=== PATIENT | male | born 1965 | race Caucasian/White ===

== ENCOUNTER 2017-11-28 01:18 | Inpatient (IN) | payer OTHER ==
[2017-11-28] MEDS ORDERED: DOCUSATE SODIUM 100 MG CAP PO (03:00)
[2017-11-28] MEDS ORDERED: BISACODYL (EC) 5 MG TAB PO (03:00)
[2017-11-28] MEDS ORDERED: NACL 0.9% 3 ML SYG IV (03:00)
[2017-11-28 03:32] LABS: ADD MAN DIFF? NO
[2017-11-28 03:35] LABS: WHITE BLOOD COUNT 13.5 10^3/ul (4.8-10.8)
[2017-11-28 03:35] LABS: BASOPHILS % 0.1 % (0.0-2.0); EOSINOPHILS # 0.4 10^3/ul (0.0-0.5); HEMATOCRIT 36.1 % (42.0-52.0); HEMOGLOBIN 11.6 g/dl (14.0-18.0); LYMPHOCYTES % 7.7 % (15.0-51.0); MEAN CORPUSCULAR HEMOGLOBIN 27.6 pg (29.0-33.0); MEAN CORPUSCULAR HGB CONC 32.1 g/dl (32.0-37.0); MEAN CORPUSCULAR VOLUME 85.7 fl (82.0-101.0); MONOCYTE # 0.9 10^3/ul (0.3-0.9); MONOCYTES % 6.5 % (0.0-11.0); NEUTROPHILS % 82.3 % (39.0-77.0); PLATELET COUNT 242 10^3/UL (140-415); RED BLOOD COUNT 4.21 10^6/ul (4.70-6.10); RED CELL DISTRIBUTION WIDTH 15.5 % (11.5-14.5)
[2017-11-28 04:00] LABS: HEMOGLOBIN A1C 5.2 % (0-5.9)
[2017-11-28 04:35] LABS: ALANINE AMINOTRANSFERASE 24 IU/L (13-69); ALBUMIN 3.4 g/dl (3.3-4.9); ALBUMIN/GLOBULIN RATIO 0.97; ALKALINE PHOSPHATASE 65 IU/L (42-121); ANION GAP 20 (8-16); ASPARTATE AMINO TRANSFERASE 35 IU/L (15-46); BILIRUBIN,INDIRECT 0.1 mg/dl (0-1.1); BILIRUBIN,TOTAL 0.1 mg/dl (0.2-1.3); CARBON DIOXIDE 10 mmol/L (21-31); CHLORIDE 115 mmol/L (97-110); CREATININE 10.03 mg/dl (0.61-1.24); GLUCOSE 87 mg/dl (70-220); POTASSIUM 5.7 mmol/L (3.5-5.1); SODIUM 139 mmol/L (135-144); TOTAL PROTEIN 6.9 g/dl (6.1-8.1)
[2017-11-28 04:39] LABS: CALCIUM 5.6 mg/dl (8.4-10.2)
[2017-11-28 04:44] LABS: BLOOD UREA NITROGEN 143 mg/dl (7-20); MAGNESIUM 1.4 mg/dl (1.7-2.5)
[2017-11-28 04:44] LABS: PHOSPHORUS 10.7 mg/dl (2.5-4.9)
[2017-11-28] MEDS ORDERED: CA CHLORIDE 10% 10 ML SYRINGE IV (05:00)
[2017-11-28] MEDS ORDERED: MAGNESIUM SULFATE 3 GM in DEXTROSE 5% 100 ML IVPB (05:30)
[2017-11-28] MEDS: FUROSEMIDE 20 MG TAB PO ×2 (05:50→17:31)
[2017-11-28] MEDS: SOD CHLORIDE 0.9% IV ×3 (06:19→10:30)
[2017-11-28] MEDS: CALCIUM CHLORIDE IV ×3 (06:19→10:30)
[2017-11-28] MEDS: MAGNESIUM SULFATE 1 GM/D5W 100 ML IVPB ×5 (07:00→17:31)
[2017-11-28] MEDS: SPIRONOLACTONE 25 MG TAB PO (08:09)
[2017-11-28] MEDS: SEVELAMER CARBONATE 800 MG TABLET PO ×3 (08:09→17:31)
[2017-11-28] MEDS: AMLODIPINE 10 MG TAB PO (08:10)
[2017-11-28] MEDS: ASPIRIN (EC) 81 MG TAB PO (08:11)
[2017-11-28] MEDS ORDERED: CYCLOSPORINE MODIFIED 25 MG PO (09:00)
[2017-11-28] MEDS: CHOLECALCIFEROL 1,000 UNIT TAB PO (09:00)
[2017-11-28] MEDS ORDERED: SODIUM CITRATE PO (09:00)
[2017-11-28] MEDS ORDERED: [UNRECOGNIZED DRUG - OTHER] PO (09:00)
[2017-11-28] MEDS ORDERED: CITRIC ACID PO (09:00)
[2017-11-28] MEDS: PANTOPRAZOLE (EC) 40 MG TAB PO ×2 (10:29→18:00)
[2017-11-28] MEDS: ATORVASTATIN 10 MG TAB PO (10:30)
[2017-11-28] MEDS: FISH OIL 1,000 MG CAP PO ×2 (10:30→21:05)
[2017-11-28 10:57] LABS: HAAIG REFLEX REFLEX FILED
[2017-11-28 12:01] LABS: HEPATITIS B SURFACE ANTIGEN NEGATIVE (NEGATIVE)
[2017-11-28 12:19] LABS: HEPATITIS B CORE ANTIBODY NEGATIVE (NEGATIVE); HEPATITIS C VIRAL ANTIBODY NEGATIVE (NEGATIVE); HIV 1&2 ANTIBODY NEGATIVE (NEGATIVE)
[2017-11-28 12:49] LABS: B-TYPE NATRIURETIC PEPTIDE 2510 PG/ML (0-125)
[2017-11-28] MEDS ORDERED: MIDAZOLAM 1 MG/ML 2 ML INJ (13:08)
[2017-11-28] MEDS ORDERED: FENTAnyl 50 MCG/ML VIAL (13:08)
[2017-11-28] MEDS ORDERED: HEPARIN 1000 UNITS/ML 10 ML INJ (13:37)
[2017-11-28] MEDS: METOCLOPRAMIDE 10 MG INJ IV (17:31)
[2017-11-28] MEDS: HEPARIN 1000 UNITS/ML 10 ML INJ CATHETER (17:59)
[2017-11-28] MEDS: CYCLOSPORINE MICROEMULS 25 MG CAP PO (18:00)
[2017-11-28 18:29] LABS: CREATINE KINASE 2515 IU/L (23-200)
[2017-11-28 18:34] LABS: CK INDEX 0.6; TROPONIN-I 0.057 ng/ml (0.000-0.120)
[2017-11-29 01:46] LABS: CREATINE KINASE 2176 IU/L (23-200)
[2017-11-29 01:49] LABS: CK INDEX 0.6
[2017-11-29 01:57] LABS: TROPONIN-I 0.157 ng/ml (0.000-0.120)
[2017-11-29 02:56] LABS: ADD UMIC YES; UR ASCORBIC ACID NEGATIVE (NEGATIVE); UR BILIRUBIN (Dip) NEGATIVE (NEGATIVE); UR BLOOD (Dip) 1+ mg/dL (NEGATIVE); UR CLARITY CLEAR (CLEAR); UR COLOR STRAW (YELLOW); UR GLUCOSE (Dip) 3+ mg/dL (NEGATIVE); UR KETONES (Dip) NEGATIVE (NEGATIVE); UR LEUKOCYTE ESTERASE (Dip) NEGATIVE Leu/ul (NEGATIVE); UR NITRITE (Dip) NEGATIVE (NEGATIVE); UR RBC 0 /HPF (0-5); UR SPECIFIC GRAVITY (Dip) 1.005 (1.003-1.030); UR TOTAL PROTEIN (Dip) 3+ mg/dl (NEGATIVE); UR UROBILINOGEN (Dip) NEGATIVE (NEGATIVE); UR WBC 1 /HPF (0-5)
[2017-11-29] MEDS: FUROSEMIDE 20 MG TAB PO ×2 (05:56→18:46)
[2017-11-29] MEDS: PANTOPRAZOLE (EC) 40 MG TAB PO ×2 (05:56→18:46)
[2017-11-29 06:05] LABS: ADD MAN DIFF? NO
[2017-11-29 06:08] LABS: BASOPHILS % 0.4 % (0.0-2.0); EOSINOPHILS # 1.2 10^3/ul (0.0-0.5); HEMATOCRIT 35.3 % (42.0-52.0); HEMOGLOBIN 11.6 g/dl (14.0-18.0); IMMATURE GRANS #M 0.03 10^3/ul; IMMATURE GRANS % (M) 0.3 %; LYMPHOCYTES # 1.2 10^3/ul (0.8-2.9); LYMPHOCYTES % 11.8 % (15.0-51.0); MEAN CORPUSCULAR HEMOGLOBIN 27.4 pg (29.0-33.0); MEAN CORPUSCULAR HGB CONC 32.9 g/dl (32.0-37.0); MEAN CORPUSCULAR VOLUME 83.5 fl (82.0-101.0); MONOCYTE # 0.8 10^3/ul (0.3-0.9); MONOCYTES % 8.3 % (0.0-11.0); NEUTROPHIL # 6.8 10^3/ul (1.6-7.5); NEUTROPHILS % 67.2 % (39.0-77.0); PLATELET COUNT 220 10^3/UL (140-415); RED BLOOD COUNT 4.23 10^6/ul (4.70-6.10); RED CELL DISTRIBUTION WIDTH 15.4 % (11.5-14.5)
[2017-11-29 06:08] LABS: WHITE BLOOD COUNT 10.1 10^3/ul (4.8-10.8)
[2017-11-29 06:30] LABS: PHOSPHORUS 8.4 mg/dl (2.5-4.9)
[2017-11-29 06:41] LABS: HEMOGLOBIN A1C 5.1 % (0-5.9)
[2017-11-29 06:42] LABS: CREATINE KINASE 1315 IU/L (23-200)
[2017-11-29 06:45] LABS: ALBUMIN/GLOBULIN RATIO 1.03; ANION GAP 17 (8-16); BILIRUBIN,TOTAL 0.5 mg/dl (0.2-1.3); CK INDEX 0.9
[2017-11-29 06:49] LABS: TROPONIN-I 0.139 ng/ml (0.000-0.120)
[2017-11-29 06:54] LABS: ALANINE AMINOTRANSFERASE 31 IU/L (13-69); ALKALINE PHOSPHATASE 58 IU/L (42-121); ASPARTATE AMINO TRANSFERASE 44 IU/L (15-46); BILIRUBIN,INDIRECT 0.5 mg/dl (0-1.1); BLOOD UREA NITROGEN 94 mg/dl (7-20); CALCIUM 6.3 mg/dl (8.4-10.2); CARBON DIOXIDE 19 mmol/L (21-31); CHLORIDE 109 mmol/L (97-110); CREATININE 6.89 mg/dl (0.61-1.24); GLUCOSE 76 mg/dl (70-220); POTASSIUM 5.6 mmol/L (3.5-5.1); SODIUM 139 mmol/L (135-144)
[2017-11-29 06:55] LABS: ALBUMIN 2.8 g/dl (3.3-4.9); TOTAL PROTEIN 5.5 g/dl (6.1-8.1)
[2017-11-29 07:46] LABS: HDL CHOLESTEROL 42 mg/dl (28-71); LDL CHOLESTEROL,CALCULATED 68 mg/dl; TRIGLYCERIDES 86 mg/dl (0-149)
[2017-11-29 07:46] LABS: CHOLESTEROL 127 mg/dl (100-200)
[2017-11-29] MEDS: SEVELAMER CARBONATE 800 MG TABLET PO ×3 (08:00→17:05)
[2017-11-29] MEDS: ATORVASTATIN 10 MG TAB PO (09:12)
[2017-11-29] MEDS: AMLODIPINE 10 MG TAB PO (09:12)
[2017-11-29] MEDS: FISH OIL 1,000 MG CAP PO ×2 (09:12→20:40)
[2017-11-29] MEDS: CYCLOSPORINE MICROEMULS 25 MG CAP PO ×2 (09:12→20:39)
[2017-11-29] MEDS: ASPIRIN (EC) 81 MG TAB PO (09:17)
[2017-11-30 05:48] LABS: ADD MAN DIFF? NO
[2017-11-30 05:51] LABS: WHITE BLOOD COUNT 10.3 10^3/ul (4.8-10.8)
[2017-11-30 05:51] LABS: BASOPHILS % 0.3 % (0.0-2.0); EOSINOPHILS # 1.2 10^3/ul (0.0-0.5); EOSINOPHILS % 11.5 % (0.0-7.0); HEMOGLOBIN 11.3 g/dl (14.0-18.0); IMMATURE GRANS #M 0.03 10^3/ul; IMMATURE GRANS % (M) 0.3 %; LYMPHOCYTES # 1.3 10^3/ul (0.8-2.9); LYMPHOCYTES % 12.9 % (15.0-51.0); MEAN CORPUSCULAR HGB CONC 32.3 g/dl (32.0-37.0); MEAN CORPUSCULAR VOLUME 83.7 fl (82.0-101.0); MONOCYTE # 1.2 10^3/ul (0.3-0.9); MONOCYTES % 11.3 % (0.0-11.0); NEUTROPHIL # 6.6 10^3/ul (1.6-7.5); NEUTROPHILS % 63.7 % (39.0-77.0); PLATELET COUNT 195 10^3/UL (140-415); RED BLOOD COUNT 4.18 10^6/ul (4.70-6.10); RED CELL DISTRIBUTION WIDTH 15.3 % (11.5-14.5)
[2017-11-30 06:09] LABS: MAGNESIUM 1.8 mg/dl (1.7-2.5)
[2017-11-30 06:09] LABS: PHOSPHORUS 6.9 mg/dl (2.5-4.9)
[2017-11-30 06:19] LABS: ANION GAP 14 (8-16); BLOOD UREA NITROGEN 52 mg/dl (7-20); CARBON DIOXIDE 26 mmol/L (21-31); CHLORIDE 100 mmol/L (97-110); CREATININE 4.72 mg/dl (0.61-1.24); GLUCOSE 120 mg/dl (70-220); SODIUM 136 mmol/L (135-144)
[2017-11-30 06:21] LABS: CALCIUM 5.9 mg/dl (8.4-10.2)
[2017-11-30] MEDS: PANTOPRAZOLE (EC) 40 MG TAB PO ×2 (06:37→20:21)
[2017-11-30] MEDS: FUROSEMIDE 20 MG TAB PO ×2 (06:38→20:22)
[2017-11-30] MEDS: ATORVASTATIN 10 MG TAB PO (08:29)
[2017-11-30] MEDS: SEVELAMER CARBONATE 800 MG TABLET PO ×3 (08:29→20:21)
[2017-11-30] MEDS: CYCLOSPORINE MICROEMULS 25 MG CAP PO ×2 (08:29→20:21)
[2017-11-30] MEDS: ASPIRIN (EC) 81 MG TAB PO (08:29)
[2017-11-30] MEDS: FISH OIL 1,000 MG CAP PO ×2 (08:30→20:21)
[2017-11-30] MEDS: METOCLOPRAMIDE 10 MG INJ IV (08:30)
[2017-11-30] MEDS: AMLODIPINE 10 MG TAB PO (08:30)
[2017-12-01 05:51] LABS: ADD MAN DIFF? NO
[2017-12-01] MEDS: PANTOPRAZOLE (EC) 40 MG TAB PO ×2 (05:51→18:00)
[2017-12-01] MEDS: FUROSEMIDE 20 MG TAB PO ×2 (05:52→18:00)
[2017-12-01 06:00] LABS: BASOPHILS % 0.3 % (0.0-2.0); EOSINOPHILS # 1.6 10^3/ul (0.0-0.5); EOSINOPHILS % 14.1 % (0.0-7.0); HEMATOCRIT 34.3 % (42.0-52.0); HEMOGLOBIN 10.9 g/dl (14.0-18.0); IMMATURE GRANS #M 0.04 10^3/ul; IMMATURE GRANS % (M) 0.4 %; LYMPHOCYTES # 1.7 10^3/ul (0.8-2.9); LYMPHOCYTES % 15.5 % (15.0-51.0); MEAN CORPUSCULAR HEMOGLOBIN 27.3 pg (29.0-33.0); MEAN CORPUSCULAR HGB CONC 31.8 g/dl (32.0-37.0); MEAN PLATELET VOLUME 10.2 fl (7.4-10.4); MONOCYTES % 9.2 % (0.0-11.0); NEUTROPHIL # 6.7 10^3/ul (1.6-7.5); NEUTROPHILS % 60.5 % (39.0-77.0); PLATELET COUNT 189 10^3/UL (140-415); RED BLOOD COUNT 3.99 10^6/ul (4.70-6.10); RED CELL DISTRIBUTION WIDTH 14.7 % (11.5-14.5)
[2017-12-01 06:15] LABS: PHOSPHORUS 8.3 mg/dl (2.5-4.9)
[2017-12-01 06:22] LABS: MAGNESIUM 1.6 mg/dl (1.7-2.5)
[2017-12-01 06:43] LABS: ANION GAP 19 (8-16); BLOOD UREA NITROGEN 73 mg/dl (7-20); CARBON DIOXIDE 21 mmol/L (21-31); CHLORIDE 102 mmol/L (97-110); CREATININE 6.35 mg/dl (0.61-1.24); GLUCOSE 83 mg/dl (70-220); POTASSIUM 4.6 mmol/L (3.5-5.1); SODIUM 137 mmol/L (135-144)
[2017-12-01 06:53] LABS: CALCIUM 5.2 mg/dl (8.4-10.2)
[2017-12-01] MEDS: SEVELAMER CARBONATE 800 MG TABLET PO ×3 (07:55→18:00)
[2017-12-01] MEDS: CYCLOSPORINE MICROEMULS 25 MG CAP PO ×2 (08:50→21:00)
[2017-12-01] MEDS: ATORVASTATIN 10 MG TAB PO (08:50)
[2017-12-01] MEDS: CALCIUM CARBONATE 1.25 GM TAB PO ×3 (08:51→21:00)
[2017-12-01] MEDS: FISH OIL 1,000 MG CAP PO ×2 (08:51→21:00)
[2017-12-01] MEDS: ASPIRIN (EC) 81 MG TAB PO (08:51)
[2017-12-01] MEDS: AMLODIPINE 10 MG TAB PO (09:00)
[2017-12-01] MEDS: MAGNESIUM SULFATE 2 GM/50 ML 50 ML IVPB ×2 (09:30→14:27)
[2017-12-01 13:21] LABS: CYCLOSPORIN <25 mcg/L
[2017-12-01] MEDS: CHOLECALCIFEROL 1,000 UNIT TAB PO (16:00)
[2017-12-01] MEDS ORDERED: HEPARIN 1000 UNITS/ML 10 ML INJ ×2 (21:06→22:19)
[2017-12-01] MEDS ORDERED: THROMBIN 5000 UNIT VIAL (21:06)
[2017-12-01] MEDS ORDERED: MIDAZOLAM 1 MG/ML 2 ML INJ ×2 (21:15→22:06)
[2017-12-01] MEDS ORDERED: FENTAnyl 50 MCG/ML VIAL ×2 (21:15→22:06)
[2017-12-01] MEDS ORDERED: ROPIVACAINE 0.2% 20 ML VIAL (21:15)
[2017-12-01] MEDS ORDERED: CEFAZOLIN 1 GM INJ (21:15)
[2017-12-01] MEDS: HEPARIN 10,000 UNITS/ML 1 ML INJ IRR (21:52)
[2017-12-01] MEDS ORDERED: ONDANSETRON 4 MG INJ IV (22:30)
[2017-12-01] MEDS ORDERED: MEPERIDINE 25 MG INJ IV (22:30)
[2017-12-01] MEDS ORDERED: hydrALAzine 20 MG INJ IV (22:30)
[2017-12-01] MEDS ORDERED: LABETALOL HCL 20MG INJ IV (22:30)
[2017-12-01] MEDS ORDERED: DIPHENHYDRAMINE 50 MG INJ IV (22:30)
[2017-12-01] MEDS ORDERED: HYDROmorphONE 1 MG/5 ML IV SYRINGE IV ×3 (22:30)
[2017-12-01] MEDS: LIDOCAINE 1% (MPF) 30 ML INJ (22:46)
[2017-12-01] MEDS: GELATIN SIZE 100 SPONGE (22:54)
[2017-12-01] MEDS: HEMOSTATIC MATRIX/ THROMBIN 1 EA SYG ZFS (22:55)
[2017-12-02] MEDS: ACETAMINOPHEN 325 MG TAB PO ×2 (05:11→20:12)
[2017-12-02] MEDS: PANTOPRAZOLE (EC) 40 MG TAB PO ×2 (05:12→17:37)
[2017-12-02] MEDS: FUROSEMIDE 20 MG TAB PO ×2 (05:12→17:37)
[2017-12-02 05:59] LABS: ADD MAN DIFF? NO
[2017-12-02 06:10] LABS: BASOPHILS % 0.2 % (0.0-2.0); EOSINOPHILS # 0.9 10^3/ul (0.0-0.5); EOSINOPHILS % 11.2 % (0.0-7.0); HEMATOCRIT 39.1 % (42.0-52.0); HEMOGLOBIN 12.3 g/dl (14.0-18.0); IMMATURE GRANS #M 0.03 10^3/ul; IMMATURE GRANS % (M) 0.4 %; LYMPHOCYTES # 1.1 10^3/ul (0.8-2.9); LYMPHOCYTES % 13.3 % (15.0-51.0); MEAN CORPUSCULAR HEMOGLOBIN 27.4 pg (29.0-33.0); MEAN CORPUSCULAR HGB CONC 31.5 g/dl (32.0-37.0); MEAN CORPUSCULAR VOLUME 87.1 fl (82.0-101.0); MEAN PLATELET VOLUME 9.9 fl (7.4-10.4); MONOCYTE # 0.8 10^3/ul (0.3-0.9); NEUTROPHIL # 5.5 10^3/ul (1.6-7.5); NEUTROPHILS % 65.9 % (39.0-77.0); PLATELET COUNT 188 10^3/UL (140-415); RED BLOOD COUNT 4.49 10^6/ul (4.70-6.10); RED CELL DISTRIBUTION WIDTH 14.6 % (11.5-14.5)
[2017-12-02 06:10] LABS: WHITE BLOOD COUNT 8.4 10^3/ul (4.8-10.8)
[2017-12-02 06:44] LABS: PHOSPHORUS 7.9 mg/dl (2.5-4.9)
[2017-12-02 06:44] LABS: MAGNESIUM 2.2 mg/dl (1.7-2.5)
[2017-12-02 06:47] LABS: CREATINE KINASE 613 IU/L (23-200)
[2017-12-02 06:52] LABS: ANION GAP 16 (8-16); BLOOD UREA NITROGEN 47 mg/dl (7-20); CALCIUM 6.9 mg/dl (8.4-10.2); CARBON DIOXIDE 25 mmol/L (21-31); CHLORIDE 100 mmol/L (97-110); CREATININE 4.78 mg/dl (0.61-1.24); GLUCOSE 87 mg/dl (70-220); POTASSIUM 4.8 mmol/L (3.5-5.1); SODIUM 136 mmol/L (135-144)
[2017-12-02] MEDS ORDERED: HEPARIN 5,000 UNIT/0.5 ML VIAL SC (09:00)
[2017-12-02] MEDS: CYCLOSPORINE MICROEMULS 25 MG CAP PO ×2 (09:14→20:12)
[2017-12-02] MEDS: CHOLECALCIFEROL 1,000 UNIT TAB PO (09:14)
[2017-12-02] MEDS: CALCIUM CARBONATE 1.25 GM TAB PO ×3 (09:14→20:12)
[2017-12-02] MEDS: ASPIRIN (EC) 81 MG TAB PO (09:14)
[2017-12-02] MEDS: SEVELAMER CARBONATE 800 MG TABLET PO ×3 (09:14→17:35)
[2017-12-02] MEDS: ATORVASTATIN 10 MG TAB PO (09:14)
[2017-12-02] MEDS: FISH OIL 1,000 MG CAP PO ×2 (09:14→20:12)
[2017-12-02] MEDS: AMLODIPINE 10 MG TAB PO (09:14)
[2017-12-02] MEDS ORDERED: SODIUM CHLORIDE 0.9% 1L BAG IV (17:00)
[2017-12-02] MEDS ORDERED: ALBUMIN HUMAN 25% 50 ML IV (17:00)
[2017-12-03 05:50] LABS: ADD MAN DIFF? NO
[2017-12-03 06:00] LABS: WHITE BLOOD COUNT 10.5 10^3/ul (4.8-10.8)
[2017-12-03 06:00] LABS: BASOPHILS % 0.4 % (0.0-2.0); EOSINOPHILS # 1.6 10^3/ul (0.0-0.5); EOSINOPHILS % 15.5 % (0.0-7.0); HEMATOCRIT 35.4 % (42.0-52.0); HEMOGLOBIN 11.4 g/dl (14.0-18.0); IMMATURE GRANS #M 0.03 10^3/ul; IMMATURE GRANS % (M) 0.3 %; LYMPHOCYTES # 1.3 10^3/ul (0.8-2.9); LYMPHOCYTES % 12.8 % (15.0-51.0); MEAN CORPUSCULAR HEMOGLOBIN 27.9 pg (29.0-33.0); MEAN CORPUSCULAR HGB CONC 32.2 g/dl (32.0-37.0); MEAN CORPUSCULAR VOLUME 86.8 fl (82.0-101.0); MONOCYTE # 1.1 10^3/ul (0.3-0.9); MONOCYTES % 10.5 % (0.0-11.0); NEUTROPHIL # 6.3 10^3/ul (1.6-7.5); NEUTROPHILS % 60.5 % (39.0-77.0); PLATELET COUNT 168 10^3/UL (140-415); RED BLOOD COUNT 4.08 10^6/ul (4.70-6.10); RED CELL DISTRIBUTION WIDTH 14.2 % (11.5-14.5)
[2017-12-03 06:23] LABS: ANION GAP 15 (8-16); BLOOD UREA NITROGEN 67 mg/dl (7-20); CARBON DIOXIDE 24 mmol/L (21-31); CHLORIDE 99 mmol/L (97-110); CREATININE 7.17 mg/dl (0.61-1.24); GLUCOSE 84 mg/dl (70-220); SODIUM 134 mmol/L (135-144)
[2017-12-03] MEDS: PANTOPRAZOLE (EC) 40 MG TAB PO ×2 (06:53→18:17)
[2017-12-03] MEDS: FUROSEMIDE 20 MG TAB PO ×2 (06:54→18:17)
[2017-12-03] MEDS: SEVELAMER CARBONATE 800 MG TABLET PO ×3 (08:32→18:17)
[2017-12-03] MEDS: CYCLOSPORINE MICROEMULS 25 MG CAP PO ×2 (08:33→21:08)
[2017-12-03] MEDS: CHOLECALCIFEROL 1,000 UNIT TAB PO (08:33)
[2017-12-03] MEDS: FISH OIL 1,000 MG CAP PO ×2 (08:33→21:08)
[2017-12-03] MEDS: ASPIRIN (EC) 81 MG TAB PO (08:34)
[2017-12-03] MEDS: CALCIUM CARBONATE 1.25 GM TAB PO ×3 (08:34→21:08)
[2017-12-03] MEDS: ATORVASTATIN 10 MG TAB PO (08:34)
[2017-12-03] MEDS: AMLODIPINE 10 MG TAB PO (08:36)
[2017-12-03] MEDS: HEPARIN 1000 UNITS/ML 10 ML INJ CATHETER (13:56)
[2017-12-04 05:49] LABS: ADD MAN DIFF? NO
[2017-12-04 05:53] LABS: BASOPHILS % 0.4 % (0.0-2.0); EOSINOPHILS # 1.5 10^3/ul (0.0-0.5); EOSINOPHILS % 14.9 % (0.0-7.0); HEMATOCRIT 36.2 % (42.0-52.0); HEMOGLOBIN 11.3 g/dl (14.0-18.0); LYMPHOCYTES # 1.4 10^3/ul (0.8-2.9); LYMPHOCYTES % 13.7 % (15.0-51.0); MEAN CORPUSCULAR HEMOGLOBIN 27.4 pg (29.0-33.0); MEAN CORPUSCULAR HGB CONC 31.2 g/dl (32.0-37.0); MEAN CORPUSCULAR VOLUME 87.7 fl (82.0-101.0); MEAN PLATELET VOLUME 10.1 fl (7.4-10.4); MONOCYTE # 1.1 10^3/ul (0.3-0.9); MONOCYTES % 11.5 % (0.0-11.0); NEUTROPHIL # 5.9 10^3/ul (1.6-7.5); NEUTROPHILS % 59.2 % (39.0-77.0); PLATELET COUNT 157 10^3/UL (140-415); RED BLOOD COUNT 4.13 10^6/ul (4.70-6.10); RED CELL DISTRIBUTION WIDTH 14.3 % (11.5-14.5)
[2017-12-04 05:53] LABS: WHITE BLOOD COUNT 9.9 10^3/ul (4.8-10.8)
[2017-12-04] MEDS: FUROSEMIDE 20 MG TAB PO ×2 (06:00→17:40)
[2017-12-04] MEDS: PANTOPRAZOLE (EC) 40 MG TAB PO ×2 (06:00→17:40)
[2017-12-04 06:21] LABS: ANION GAP 14 (8-16); BLOOD UREA NITROGEN 49 mg/dl (7-20); CALCIUM 6.5 mg/dl (8.4-10.2); CARBON DIOXIDE 26 mmol/L (21-31); CHLORIDE 99 mmol/L (97-110); CREATININE 5.55 mg/dl (0.61-1.24); GLUCOSE 87 mg/dl (70-220); POTASSIUM 4.3 mmol/L (3.5-5.1); SODIUM 135 mmol/L (135-144)
[2017-12-04] MEDS ORDERED: HEPARIN 1000 UNITS/NS (A-LINE) 1,000 ML (07:22)
[2017-12-04] MEDS ORDERED: HEPARIN 1000 UNITS/ML 10 ML INJ (07:22)
[2017-12-04] MEDS ORDERED: IODIXANOL LOCM 50 ML BTL (07:22)
[2017-12-04] MEDS ORDERED: LIDOCAINE 1% (MDV) 20 ML INJ (07:22)
[2017-12-04] MEDS ORDERED: FENTAnyl 50 MCG/ML VIAL (07:54)
[2017-12-04] MEDS ORDERED: CEFAZOLIN 2 GM/50 ML (PMX) 50 ML IVPB (07:54)
[2017-12-04] MEDS: SEVELAMER CARBONATE 800 MG TABLET PO ×3 (08:00→17:39)
[2017-12-04] MEDS: ASPIRIN (EC) 81 MG TAB PO (08:41)
[2017-12-04] MEDS: ATORVASTATIN 10 MG TAB PO (08:41)
[2017-12-04] MEDS: FISH OIL 1,000 MG CAP PO ×2 (08:41→21:44)
[2017-12-04] MEDS: CALCIUM CARBONATE 1.25 GM TAB PO ×3 (08:41→21:44)
[2017-12-04] MEDS: CHOLECALCIFEROL 1,000 UNIT TAB PO (08:41)
[2017-12-04] MEDS: CYCLOSPORINE MICROEMULS 25 MG CAP PO ×2 (08:42→21:44)
[2017-12-04] MEDS: AMLODIPINE 10 MG TAB PO (08:43)
[2017-12-05 06:19] LABS: ADD MAN DIFF? NO
[2017-12-05 06:37] LABS: BASOPHILS % 0.3 % (0.0-2.0); EOSINOPHILS # 1.6 10^3/ul (0.0-0.5); EOSINOPHILS % 17.2 % (0.0-7.0); HEMATOCRIT 34.1 % (42.0-52.0); HEMOGLOBIN 10.9 g/dl (14.0-18.0); LYMPHOCYTES # 1.3 10^3/ul (0.8-2.9); MEAN CORPUSCULAR HEMOGLOBIN 27.8 pg (29.0-33.0); MEAN PLATELET VOLUME 10.3 fl (7.4-10.4); MONOCYTE # 1.1 10^3/ul (0.3-0.9); MONOCYTES % 11.3 % (0.0-11.0); NEUTROPHIL # 5.4 10^3/ul (1.6-7.5); PLATELET COUNT 146 10^3/UL (140-415); RED BLOOD COUNT 3.92 10^6/ul (4.70-6.10); RED CELL DISTRIBUTION WIDTH 13.8 % (11.5-14.5)
[2017-12-05 06:37] LABS: WHITE BLOOD COUNT 9.4 10^3/ul (4.8-10.8)
[2017-12-05 06:59] LABS: INR 0.99; PROTIME 13.2 Sec (11.9-14.9)
[2017-12-05 07:02] LABS: ANION GAP 17 (8-16); BLOOD UREA NITROGEN 65 mg/dl (7-20); CALCIUM 6.4 mg/dl (8.4-10.2); CARBON DIOXIDE 24 mmol/L (21-31); CHLORIDE 98 mmol/L (97-110); CREATININE 6.51 mg/dl (0.61-1.24); GLUCOSE 84 mg/dl (70-220); SODIUM 135 mmol/L (135-144)
[2017-12-05] MEDS: PANTOPRAZOLE (EC) 40 MG TAB PO ×2 (07:10→18:09)
[2017-12-05] MEDS: FUROSEMIDE 20 MG TAB PO ×2 (07:11→18:09)
[2017-12-05] MEDS: FISH OIL 1,000 MG CAP PO ×2 (08:40→21:01)
[2017-12-05] MEDS: CHOLECALCIFEROL 1,000 UNIT TAB PO (08:40)
[2017-12-05] MEDS: SEVELAMER CARBONATE 800 MG TABLET PO ×3 (08:40→18:09)
[2017-12-05] MEDS: CYCLOSPORINE MICROEMULS 25 MG CAP PO ×2 (08:40→21:01)
[2017-12-05] MEDS: ASPIRIN (EC) 81 MG TAB PO (08:40)
[2017-12-05] MEDS: ATORVASTATIN 10 MG TAB PO (08:40)
[2017-12-05] MEDS: CALCIUM CARBONATE 1.25 GM TAB PO ×3 (08:41→21:01)
[2017-12-05] MEDS: HEPARIN 1000 UNITS/ML 10 ML INJ CATHETER (12:33)
[2017-12-05] MEDS: hydrOXYzine HCL 25 MG TAB PO (15:27)
[2017-12-05] MEDS: AMLODIPINE 10 MG TAB PO (15:27)
[2017-12-06] MEDS: PANTOPRAZOLE (EC) 40 MG TAB PO ×2 (05:47→17:18)
[2017-12-06] MEDS: FUROSEMIDE 20 MG TAB PO ×2 (05:48→17:18)
[2017-12-06] MEDS: ASPIRIN (EC) 81 MG TAB PO (08:49)
[2017-12-06] MEDS: SEVELAMER CARBONATE 800 MG TABLET PO ×3 (08:49→17:18)
[2017-12-06] MEDS: CHOLECALCIFEROL 1,000 UNIT TAB PO (08:49)
[2017-12-06] MEDS: FISH OIL 1,000 MG CAP PO ×2 (08:49→20:13)
[2017-12-06] MEDS: CALCIUM CARBONATE 1.25 GM TAB PO ×3 (08:49→20:13)
[2017-12-06] MEDS: ATORVASTATIN 10 MG TAB PO (08:49)
[2017-12-06] MEDS: CYCLOSPORINE MICROEMULS 25 MG CAP PO ×2 (08:49→20:14)
[2017-12-06] MEDS: AMLODIPINE 10 MG TAB PO (08:50)
[2017-12-07] MEDS: PANTOPRAZOLE (EC) 40 MG TAB PO ×2 (05:28→17:01)
[2017-12-07] MEDS: FUROSEMIDE 20 MG TAB PO ×2 (05:29→17:01)
[2017-12-07] MEDS: CALCIUM CARBONATE 1.25 GM TAB PO ×3 (08:06→20:10)
[2017-12-07] MEDS: CYCLOSPORINE MICROEMULS 25 MG CAP PO ×2 (08:06→20:10)
[2017-12-07] MEDS: SEVELAMER CARBONATE 800 MG TABLET PO ×3 (08:06→17:01)
[2017-12-07] MEDS: ATORVASTATIN 10 MG TAB PO (08:06)
[2017-12-07] MEDS: ASPIRIN (EC) 81 MG TAB PO (08:07)
[2017-12-07] MEDS: CHOLECALCIFEROL 1,000 UNIT TAB PO (08:07)
[2017-12-07] MEDS: AMLODIPINE 10 MG TAB PO (08:07)
[2017-12-07] MEDS: FISH OIL 1,000 MG CAP PO ×2 (08:07→20:10)
[2017-12-08] MEDS: PANTOPRAZOLE (EC) 40 MG TAB PO ×2 (04:55→17:20)
[2017-12-08] MEDS: FUROSEMIDE 20 MG TAB PO ×2 (04:57→17:20)
[2017-12-08] MEDS: SEVELAMER CARBONATE 800 MG TABLET PO ×3 (08:25→17:20)
[2017-12-08] MEDS: CHOLECALCIFEROL 1,000 UNIT TAB PO (08:25)
[2017-12-08] MEDS: ASPIRIN (EC) 81 MG TAB PO (08:26)
[2017-12-08] MEDS: ATORVASTATIN 10 MG TAB PO (08:26)
[2017-12-08] MEDS: CALCIUM CARBONATE 1.25 GM TAB PO ×3 (08:26→22:21)
[2017-12-08] MEDS: FISH OIL 1,000 MG CAP PO ×2 (08:26→22:20)
[2017-12-08] MEDS: CYCLOSPORINE MICROEMULS 25 MG CAP PO ×2 (08:27→22:21)
[2017-12-08] MEDS: AMLODIPINE 10 MG TAB PO (08:27)
[2017-12-08 11:05] LABS: IRON 69 ug/dl (35-150)
[2017-12-08 11:07] LABS: ANION GAP 16 (8-16); BLOOD UREA NITROGEN 73 mg/dl (7-20); CALCIUM 6.7 mg/dl (8.4-10.2); CARBON DIOXIDE 23 mmol/L (21-31); CHLORIDE 99 mmol/L (97-110); CREATININE 6.35 mg/dl (0.61-1.24); GLUCOSE 87 mg/dl (70-220); MAGNESIUM 1.7 mg/dl (1.7-2.5); PHOSPHORUS 5.8 mg/dl (2.5-4.9); POTASSIUM 4.2 mmol/L (3.5-5.1); SODIUM 134 mmol/L (135-144)
[2017-12-08 11:09] LABS: CREATINE KINASE 365 IU/L (23-200)
[2017-12-08 11:15] LABS: % IRON SATURATION 27 % SAT (22-52); TOTAL IRON BINDING CAPACITY 251 ug/dl (241-421)
[2017-12-08] MEDS: HEPARIN 1000 UNITS/ML 10 ML INJ CATHETER (22:17)
[2017-12-09] MEDS: FUROSEMIDE 20 MG TAB PO ×2 (06:23→17:11)
[2017-12-09] MEDS: PANTOPRAZOLE (EC) 40 MG TAB PO ×2 (06:23→17:11)
[2017-12-09] MEDS: SEVELAMER CARBONATE 800 MG TABLET PO ×3 (08:09→17:11)
[2017-12-09] MEDS: FISH OIL 1,000 MG CAP PO ×2 (08:09→21:53)
[2017-12-09] MEDS: ATORVASTATIN 10 MG TAB PO (08:10)
[2017-12-09] MEDS: AMLODIPINE 10 MG TAB PO (08:10)
[2017-12-09] MEDS: CYCLOSPORINE MICROEMULS 25 MG CAP PO ×2 (08:10→21:53)
[2017-12-09] MEDS: ASPIRIN (EC) 81 MG TAB PO (08:10)
[2017-12-09] MEDS: CALCIUM CARBONATE 1.25 GM TAB PO ×3 (08:10→21:53)
[2017-12-09] MEDS: CHOLECALCIFEROL 1,000 UNIT TAB PO (08:10)
[2017-12-09] MEDS: MAGNESIUM SULFATE 1 GM/D5W 100 ML IVPB (12:12)
[2017-12-10 05:39] LABS: ADD MAN DIFF? NO
[2017-12-10 05:40] LABS: BASOPHIL # 0.1 10^3/ul (0.0-0.1); BASOPHILS % 0.7 % (0.0-2.0); EOSINOPHILS # 1.1 10^3/ul (0.0-0.5); EOSINOPHILS % 15.1 % (0.0-7.0); HEMATOCRIT 32.5 % (42.0-52.0); HEMOGLOBIN 10.5 g/dl (14.0-18.0); LYMPHOCYTES # 1.6 10^3/ul (0.8-2.9); MEAN CORPUSCULAR HEMOGLOBIN 27.6 pg (29.0-33.0); MEAN CORPUSCULAR HGB CONC 32.3 g/dl (32.0-37.0); MEAN CORPUSCULAR VOLUME 85.5 fl (82.0-101.0); MEAN PLATELET VOLUME 9.6 fl (7.4-10.4); MONOCYTE # 0.9 10^3/ul (0.3-0.9); MONOCYTES % 12.5 % (0.0-11.0); NEUTROPHIL # 3.5 10^3/ul (1.6-7.5); NEUTROPHILS % 48.3 % (39.0-77.0); PLATELET COUNT 215 10^3/UL (140-415); RED CELL DISTRIBUTION WIDTH 13.2 % (11.5-14.5)
[2017-12-10 05:40] LABS: WHITE BLOOD COUNT 7.1 10^3/ul (4.8-10.8)
[2017-12-10] MEDS: PANTOPRAZOLE (EC) 40 MG TAB PO ×2 (05:44→20:26)
[2017-12-10] MEDS: FUROSEMIDE 20 MG TAB PO ×2 (05:48→18:00)
[2017-12-10 06:21] LABS: ANION GAP 16 (8-16); BLOOD UREA NITROGEN 65 mg/dl (7-20); CALCIUM 7.1 mg/dl (8.4-10.2); CARBON DIOXIDE 25 mmol/L (21-31); CHLORIDE 96 mmol/L (97-110); CREATININE 5.45 mg/dl (0.61-1.24); GLUCOSE 79 mg/dl (70-220); MAGNESIUM 2.2 mg/dl (1.7-2.5); POTASSIUM 4.4 mmol/L (3.5-5.1); SODIUM 133 mmol/L (135-144)
[2017-12-10] MEDS: SEVELAMER CARBONATE 800 MG TABLET PO ×3 (07:56→20:25)
[2017-12-10] MEDS: ASPIRIN (EC) 81 MG TAB PO (08:28)
[2017-12-10] MEDS: AMLODIPINE 10 MG TAB PO (08:28)
[2017-12-10] MEDS: CALCIUM CARBONATE 1.25 GM TAB PO ×3 (08:28→20:26)
[2017-12-10] MEDS: CHOLECALCIFEROL 1,000 UNIT TAB PO (08:28)
[2017-12-10] MEDS: FISH OIL 1,000 MG CAP PO ×2 (08:28→20:26)
[2017-12-10] MEDS: ATORVASTATIN 10 MG TAB PO (08:28)
[2017-12-10] MEDS: CYCLOSPORINE MICROEMULS 25 MG CAP PO ×2 (08:28→20:23)
[2017-12-10] MEDS: HEPARIN 1000 UNITS/ML 10 ML INJ CATHETER (19:41)
[2017-12-11] MEDS: PANTOPRAZOLE (EC) 40 MG TAB PO ×2 (05:39→17:35)
[2017-12-11] MEDS: FUROSEMIDE 20 MG TAB PO ×2 (05:39→17:33)
[2017-12-11] MEDS: ATORVASTATIN 10 MG TAB PO (08:19)
[2017-12-11] MEDS: SEVELAMER CARBONATE 800 MG TABLET PO ×3 (08:19→17:33)
[2017-12-11] MEDS: CYCLOSPORINE MICROEMULS 25 MG CAP PO ×2 (08:21→20:21)
[2017-12-11] MEDS: FISH OIL 1,000 MG CAP PO ×2 (08:22→20:21)
[2017-12-11] MEDS: CALCIUM CARBONATE 1.25 GM TAB PO ×3 (08:22→20:21)
[2017-12-11] MEDS: CHOLECALCIFEROL 1,000 UNIT TAB PO (08:22)
[2017-12-11] MEDS: ASPIRIN (EC) 81 MG TAB PO (08:22)
[2017-12-11] MEDS: AMLODIPINE 10 MG TAB PO (08:23)
[2017-12-12] MEDS: FUROSEMIDE 20 MG TAB PO ×2 (06:08→17:07)
[2017-12-12] MEDS: PANTOPRAZOLE (EC) 40 MG TAB PO ×2 (06:08→17:07)
[2017-12-12] MEDS: ATORVASTATIN 10 MG TAB PO (08:48)
[2017-12-12] MEDS: SEVELAMER CARBONATE 800 MG TABLET PO ×3 (08:48→17:07)
[2017-12-12] MEDS: CHOLECALCIFEROL 1,000 UNIT TAB PO (08:48)
[2017-12-12] MEDS: ASPIRIN (EC) 81 MG TAB PO (08:48)
[2017-12-12] MEDS: CALCIUM CARBONATE 1.25 GM TAB PO ×3 (08:48→20:56)
[2017-12-12] MEDS: FISH OIL 1,000 MG CAP PO ×2 (08:48→20:56)
[2017-12-12] MEDS: CYCLOSPORINE MICROEMULS 25 MG CAP PO ×2 (08:48→20:57)
[2017-12-12] MEDS: AMLODIPINE 10 MG TAB PO (09:00)
[2017-12-12] MEDS: HEPARIN 1000 UNITS/ML 10 ML INJ CATHETER (18:19)
[2017-12-12] MEDS: ACETAMINOPHEN 325 MG TAB PO (20:56)
[2017-12-13] MEDS: PANTOPRAZOLE (EC) 40 MG TAB PO (05:56)
[2017-12-13] MEDS: FUROSEMIDE 20 MG TAB PO (05:57)
[2017-12-13] MEDS: SEVELAMER CARBONATE 800 MG TABLET PO (08:14)
[2017-12-13] MEDS: CHOLECALCIFEROL 1,000 UNIT TAB PO (08:14)
[2017-12-13] MEDS: FISH OIL 1,000 MG CAP PO (08:14)
[2017-12-13] MEDS: CALCIUM CARBONATE 1.25 GM TAB PO (08:14)
[2017-12-13] MEDS: ASPIRIN (EC) 81 MG TAB PO (08:15)
[2017-12-13] MEDS: CYCLOSPORINE MICROEMULS 25 MG CAP PO (08:15)
[2017-12-13] MEDS: ATORVASTATIN 10 MG TAB PO (08:15)
[2017-12-13] MEDS: AMLODIPINE 10 MG TAB PO (08:15)
== END 2017-12-13 13:17 | disposition home or self-care (01) | DRG 674 ==
LOC: 6WM 01:18
PROVIDERS: Internal Medicine
PROC: 02H633Z Insertion of Infusion Device into Right Atrium, Percutaneous Approach (ICD-10-PCS; 2017-11-28 12:00)
PROC: 03180ZF Bypass Left Brachial Artery to Lower Arm Vein, Open Approach (ICD-10-PCS; principal; 2017-11-28 12:49)
PROC: 5A1D70Z Performance of Urinary Filtration, Intermittent, Less than 6 Hours Per Day (ICD-10-PCS; 2017-11-28 12:49)
PROC: 0JH63XZ Insertion of Tunneled Vascular Access Device into Chest Subcutaneous Tissue and Fascia, Percutaneous Approach (ICD-10-PCS; 2017-11-28 12:49)
PROC: 02HV33Z Insertion of Infusion Device into Superior Vena Cava, Percutaneous Approach (ICD-10-PCS; 2017-11-28 12:49)
DX: N17.9 Acute kidney failure, unspecified (principal); I12.0 Hypertensive chronic kidney disease with stage 5 chronic kidney disease or end stage renal disease; E87.2 Acidosis; E87.5 Hyperkalemia; N18.6 End stage renal disease; E78.5 Hyperlipidemia, unspecified; E87.70 Fluid overload, unspecified; E11.21 Type 2 diabetes mellitus with diabetic nephropathy; E11.22 Type 2 diabetes mellitus with diabetic chronic kidney disease; E83.42 Hypomagnesemia; E83.51 Hypocalcemia; D63.1 Anemia in chronic kidney disease; D72.829 Elevated white blood cell count, unspecified; Z91.81 History of falling
CPT/HCPCS: 71045; 76775; 76937; 80048; 80053; 80061; 80158; 81001; 82550; 82553; 82962; 83036; 83540; 83735; 83880; 84100; 84443; 84484; 85025; 85610; 86703; 86704; 86709; 86803; 87081; 87340; 90935; 93005; 93306; 93923; 93970; 97110; 97116; 97161; 97530

== ENCOUNTER 2018-04-07 07:30 | Day surgery (SDC) | payer OTHER ==
[~2018-04-07 07:30] MED LIST: CEFAZOLIN 1 GM INJ
[2018-04-07 08:39] LABS: ADD MAN DIFF? NO
[2018-04-07 08:44] LABS: ADD UMIC YES; UR ASCORBIC ACID NEGATIVE (NEGATIVE); UR BACTERIA FEW /HPF (NONE SEEN); UR BILIRUBIN (Dip) NEGATIVE (NEGATIVE); UR BLOOD (Dip) NEGATIVE (NEGATIVE); UR CLARITY CLEAR (CLEAR); UR COLOR YELLOW (YELLOW); UR GLUCOSE (Dip) 3+ mg/dL (NEGATIVE); UR KETONES (Dip) NEGATIVE (NEGATIVE); UR LEUKOCYTE ESTERASE (Dip) NEGATIVE Leu/ul (NEGATIVE); UR MUCUS FEW /HPF (NONE SEEN); UR NITRITE (Dip) NEGATIVE (NEGATIVE); UR RBC 0 /HPF (0-5); UR SPECIFIC GRAVITY (Dip) 1.022 (1.003-1.030); UR TOTAL PROTEIN (Dip) 3+ mg/dl (NEGATIVE); UR UROBILINOGEN (Dip) NEGATIVE (NEGATIVE); UR WBC 2 /HPF (0-5)
[2018-04-07 08:46] LABS: BASOPHIL # 0.1 10^3/ul (0.0-0.1); BASOPHILS % 0.7 % (0.0-2.0); EOSINOPHILS # 0.4 10^3/ul (0.0-0.5); EOSINOPHILS % 5.3 % (0.0-7.0); HEMATOCRIT 34.5 % (42.0-52.0); HEMOGLOBIN 11.6 g/dl (14.0-18.0); LYMPHOCYTES # 1.8 10^3/ul (0.8-2.9); LYMPHOCYTES % 26.1 % (15.0-51.0); MEAN CORPUSCULAR HEMOGLOBIN 29.3 pg (29.0-33.0); MEAN CORPUSCULAR HGB CONC 33.6 g/dl (32.0-37.0); MEAN CORPUSCULAR VOLUME 87.1 fl (82.0-101.0); MEAN PLATELET VOLUME 9.9 fl (7.4-10.4); MONOCYTE # 0.6 10^3/ul (0.3-0.9); MONOCYTES % 7.8 % (0.0-11.0); NEUTROPHIL # 4.2 10^3/ul (1.6-7.5); PLATELET COUNT 203 10^3/UL (140-415); RED BLOOD COUNT 3.96 10^6/ul (4.70-6.10)
[2018-04-07 09:03] LABS: PROTIME 12.2 Sec (11.9-14.9)
[2018-04-07 09:05] LABS: PARTIAL THROMBOPLASTIN TIME 36.5 Sec (23.0-35.0)
[2018-04-07 11:37] LABS: ALANINE AMINOTRANSFERASE 16 IU/L (13-69); ALBUMIN 3.6 g/dl (3.3-4.9); ALKALINE PHOSPHATASE 84 IU/L (42-121); ANION GAP 12 (5-13); ASPARTATE AMINO TRANSFERASE 56 IU/L (15-46); BILIRUBIN,INDIRECT 0.5 mg/dl (0-1.1); BILIRUBIN,TOTAL 0.5 mg/dl (0.2-1.3); CARBON DIOXIDE 27 mmol/L (21-31); CHLORIDE 97 mmol/L (97-110); Estimated GFR 14 mL/min (>60); GLUCOSE 94 mg/dl (70-220); POTASSIUM 3.8 mmol/L (3.5-5.1); SODIUM 136 mmol/L (135-144); TOTAL PROTEIN 6.6 g/dl (6.1-8.1)
[2018-04-07 11:39] LABS: BLOOD UREA NITROGEN 40 mg/dl (7-20); CALCIUM 8.2 mg/dl (8.4-10.2); CREATININE 4.35 mg/dl (0.61-1.24)
[2018-04-07] MEDS ORDERED: ROPIVACAINE 0.5 % 30 ML VIAL (11:42)
[2018-04-07] MEDS ORDERED: MIDAZOLAM 1 MG/ML 2 ML INJ ×2 (13:20→14:37)
[2018-04-07] MEDS ORDERED: FENTAnyl 50 MCG/ML VIAL ×2 (13:55→14:54)
[2018-04-07] MEDS: BUPIVACAINE 0.5% (SDV) 30 ML INJ (13:59)
[2018-04-07] MEDS: LIDOCAINE 1% (STERILE-PAK) 30 ML INJ (13:59)
[2018-04-07] MEDS: THROMBIN 5000 UNIT VIAL (14:00)
[2018-04-07] MEDS: POLYMYXIN/BACITRACIN 1L IRRIG (14:00)
[2018-04-07] MEDS: HEPARIN 1000 UNITS/ML 10 ML INJ (14:02)
[2018-04-07] MEDS: GELATIN SIZE 100 SPONGE (14:03)
[2018-04-07] MEDS ORDERED: PROPOFOL 20 ML (14:29)
[2018-04-07] MEDS ORDERED: MEPERIDINE 25 MG INJ IV (14:30)
[2018-04-07] MEDS ORDERED: FENTAnyl 50 MCG/ML VIAL IV ×3 (14:30)
[2018-04-07] MEDS ORDERED: LABETALOL HCL 20MG INJ IV (14:30)
[2018-04-07] MEDS ORDERED: MIDAZOLAM 1 MG/ML 2 ML INJ IV (14:30)
[2018-04-07] MEDS ORDERED: hydrALAzine 20 MG INJ IV (14:30)
[2018-04-07] MEDS ORDERED: OXYCODONE/ACETAMINOPHEN (5/325) TAB PO (14:30)
[2018-04-07] MEDS ORDERED: DIPHENHYDRAMINE 50 MG INJ IV (14:30)
[2018-04-07] MEDS ORDERED: EPHEDrine SULFATE 50 MG/5 ML SYG IV (14:30)
[2018-04-07] MEDS: ONDANSETRON 4 MG INJ IV (16:35)
[2018-04-07] MEDS: METOCLOPRAMIDE 10 MG INJ IV (17:30)
[2018-04-07] MEDS: OXYCODONE/ACETAMINOPHEN (5/325) TAB PO (17:51)
== END 2018-04-07 18:11 | disposition home or self-care (01) ==
LOC: SDS 07:30
DX: I12.0 Hypertensive chronic kidney disease with stage 5 chronic kidney disease or end stage renal disease (principal); N18.6 End stage renal disease
CPT/HCPCS: 36821; 71045; 80053; 81001; 85025; 85610; 85730; 93005

== ENCOUNTER 2018-08-13 06:38 | Day surgery (SDC) | payer OTHER ==
[2018-08-13 06:57] LABS: ADD MAN DIFF? NO
[2018-08-13 06:59] LABS: BASOPHIL # 0.1 10^3/ul (0.0-0.1); BASOPHILS % 0.9 % (0.0-2.0); EOSINOPHILS # 0.4 10^3/ul (0.0-0.5); EOSINOPHILS % 5.1 % (0.0-7.0); HEMATOCRIT 36.7 % (42.0-52.0); LYMPHOCYTES # 2.5 10^3/ul (0.8-2.9); LYMPHOCYTES % 31.3 % (15.0-51.0); MEAN CORPUSCULAR HEMOGLOBIN 29.2 pg (29.0-33.0); MEAN CORPUSCULAR HGB CONC 32.7 g/dl (32.0-37.0); MEAN CORPUSCULAR VOLUME 89.3 fl (82.0-101.0); MEAN PLATELET VOLUME 9.6 fl (7.4-10.4); MONOCYTE # 0.7 10^3/ul (0.3-0.9); MONOCYTES % 8.7 % (0.0-11.0); NEUTROPHIL # 4.3 10^3/ul (1.6-7.5); NEUTROPHILS % 53.8 % (39.0-77.0); PLATELET COUNT 216 10^3/UL (140-415); RED BLOOD COUNT 4.11 10^6/ul (4.70-6.10); RED CELL DISTRIBUTION WIDTH 12.8 % (11.5-14.5)
[2018-08-13 07:01] LABS: INR 0.91; PROTIME 12.4 Sec (11.9-14.9)
[2018-08-13 07:07] LABS: ANION GAP 7 (5-13); CALCIUM 8.5 mg/dl (8.4-10.2); CARBON DIOXIDE 34 mmol/L (21-31); CHLORIDE 101 mmol/L (97-110); Estimated GFR 11 mL/min (>60); GLUCOSE 81 mg/dl (70-220); POTASSIUM 4.5 mmol/L (3.5-5.1); SODIUM 142 mmol/L (135-144)
[2018-08-13 07:12] LABS: BLOOD UREA NITROGEN 40 mg/dl (7-20); CREATININE 5.37 mg/dl (0.61-1.24)
[2018-08-13] MEDS ORDERED: MIDAZOLAM 1 MG/ML 2 ML INJ (07:23)
[2018-08-13] MEDS ORDERED: LIDOCAINE 1% (MDV) 20 ML INJ (07:23)
[2018-08-13] MEDS ORDERED: SOD CHLORIDE 0.9% 500 ML (07:23)
[2018-08-13] MEDS ORDERED: HEPARIN 1000 UNITS/NS (A-LINE) 1,000 ML (07:23)
[2018-08-13] MEDS ORDERED: FENTAnyl 50 MCG/ML VIAL (07:23)
[2018-08-13 07:26] LABS: PARTIAL THROMBOPLASTIN TIME 35.6 Sec (23.0-35.0)
[2018-08-13] MEDS ORDERED: ONDANSETRON 4 MG INJ (07:59)
== END 2018-08-13 09:10 | disposition home or self-care (01) ==
LOC: CCL 06:38 → SDS 06:38 → CCL 09:10
DX: I12.0 Hypertensive chronic kidney disease with stage 5 chronic kidney disease or end stage renal disease (principal); N18.6 End stage renal disease
CPT/HCPCS: 37248; 37249; 75827; 80048; 85025; 85610; 85730

== ENCOUNTER 2018-08-27 11:13 | Day surgery (SDC) | payer OTHER ==
[2018-08-27] MEDS ORDERED: MIDAZOLAM 1 MG/ML 2 ML INJ ×2 (14:12)
[2018-08-27] MEDS ORDERED: FENTAnyl 50 MCG/ML VIAL (14:12)
== END 2018-08-27 14:58 | disposition home or self-care (01) ==
LOC: GIL 11:13
DX: D12.5 Benign neoplasm of sigmoid colon (principal); K64.8 Other hemorrhoids; I10 Essential (primary) hypertension
CPT/HCPCS: 45385; 88305